=== PATIENT | male | born 1965 | race American Indian/Alaskan Native ===

== ENCOUNTER 2017-05-30 15:04 | Emergency (ER) | payer MEDICARE ==
[2017-05-30] MEDS ORDERED: DUONEB *Not for PRN Use IH ONE (17:34)
[2017-05-30 19:43] VITALS: BP 137/92
--- NOTE | 2017-05-30 19:44 | XRay Report ---
FINAL REPORT EXAM: XR CHEST ROUTINE 2V HISTORY: productive cough and wheezing TECHNIQUE: Two view chest PA and lateral PRIORS: None. FINDINGS: Cardiac and mediastinal contours are unremarkable. No focal pulmonary infiltrate is identified. No pleural fluid collection seen. Pulmonary vasculature is unremarkable. Nipple shadows noted. IMPRESSION: Negative two-view chest
== END 2017-05-30 19:51 | disposition home or self-care (01) ==
LOC: ED 15:04
DX: J01.90 Acute sinusitis, unspecified (principal); J45.909 Unspecified asthma, uncomplicated; I10 Essential (primary) hypertension
CPT/HCPCS: 71020

== ENCOUNTER 2017-09-03 17:06 | Emergency (ER) | payer OTHER ==
[2017-09-03] MEDS ORDERED: DUONEB *Not for PRN Use IH ONE (19:04)
[2017-09-03] MEDS ORDERED: CATAPRES PO ONE (19:04)
[2017-09-03] MEDS ORDERED: DELTASONE PO ONE (19:04)
[2017-09-03 20:21] VITALS: BP 140/92
--- NOTE | 2017-09-03 20:23 | Emergency Department Report ---
ED Asthma HPI - General Chief Complaint: Adult Asthma Stated Complaint: ASTHMA Time Seen by Provider: 09/03/17 19:03 Source: patient Mode of arrival: Ambulatory Limitations: No Limitations - History of Present Illness Initial Comments: pt is a 51 y/o aam with hx asthma pt states out of albuterol inhaler for past 2 weeks, pt states symptoms worse at night, denies sob no cp no dizziness no headache no n/v at this time. MD Complaint: wheezing Onset/Timin -: week(s) Asthma History: childhood onset Severity: moderate Context: other (out of albuterol ) Associated Symptoms: dry cough. denies: productive cough, fever, chest pain, hemoptysis, leg edema, syncope Treatments Prior to Arrival: other (none ) - Related Data Current Asthma Therapy: inhaled bronchodilator Home Medications Medication Instructions Recorded Confirmed Last Taken Albuterol Sulfate [Ventolin HFA] 2 puff IH Q4H PRN 07/26/13 12/01/14 12/01/14 traMADol [Ultram] 50 mg PO Q4HR PRN 12/01/14 12/01/14 12/01/14 Previous Rx's Medication Instructions Recorded Last Taken Type Albuterol Sulfate [Proventil HFA] 1 - 2 puff IH Q4H PRN #1 07/26/13 12/01/14 Rx ALBUTEROL Inhaler [ProAir HFA 2 puff IH QID PRN #1 inhalation 09/30/13 12/01/14 Rx Inhaler] Albuterol Sulfate [Ventolin HFA] 2 puff IH Q4H PRN #1 hfa.aer.ad 12/01/14 Unknown Rx HYDROcodone/ACETAMINOPHEN [[place] 1 each PO Q6H PRN #16 tablet 12/01/14 Unknown Rx 7.5-325 mg TAB] Loratadine [Claritin] 10 mg PO DAILY #30 tablet 12/01/14 Unknown Rx Sulfamethoxazole/Trimethoprim 1 each PO Q12H #14 tablet 12/01/14 Unknown Rx [Bactrim Ds] predniSONE [Deltasone] 20 mg PO TID #15 tab 12/01/14 Unknown Rx Albuterol Sulfate [Ventolin HFA] 2 puff IH Q4H PRN #1 hfa.aer.ad 02/15/15 Unknown Rx predniSONE [Deltasone] 20 mg PO TID #15 tab 02/15/15 Unknown Rx Albuterol Sulfate [Proair 90 mcg IH PRN #1 bottle 05/30/17 Unknown Rx Respiclick] Azithromycin [Zithromax Z-KALPANA] 250 mg PO DAILY #6 tablet 05/30/17 Unknown Rx predniSONE [Deltasone] 10 mg PO QDAY #3 tab 05/30/17 Unknown Rx ALBUTEROL Inhaler [ProAir HFA 2 puff IH QID PRN #1 inhalation 09/03/17 Unknown Rx Inhaler] predniSONE [Deltasone] 40 mg PO QDAY #10 tab 09/03/17 Unknown Rx Allergies Allergy/AdvReac Type Severity Reaction Status Date / Time pollen Allergy Shortness Uncoded 09/03/17 17:08 of Breath ED Review of Systems ROS: Stated complaint: ASTHMA Other details as noted in HPI Constitutional: denies: chills, fever Eyes: denies: eye pain, eye discharge, vision change ENT: denies: ear pain, throat pain Respiratory: cough, wheezing. denies: shortness of breath Cardiovascular: denies: chest pain, palpitations, edema Endocrine: no symptoms reported Gastrointestinal: denies: abdominal pain, nausea, diarrhea Genitourinary: denies: urgency, dysuria Musculoskeletal: denies: back pain, joint swelling, arthralgia Skin: denies: rash, lesions Neurological: denies: headache, weakness, paresthesias Psychiatric: denies: anxiety, depression Hematological/Lymphatic: denies: easy bleeding, easy bruising ED Past Medical Hx - Past Medical History Hx Hypertension: Yes Hx Asthma: Yes - Surgical History Additional Surgical History: back surg, knee surg - Social History Smoking Status: Never Smoker Substance Use Type: Alcohol - Medications Home Medications: Home Medications Medication Instructions Recorded Confirmed Last Taken Type Albuterol Sulfate [Proventil HFA] 1 - 2 puff IH Q4H PRN #1 07/26/13 12/01/1409/05 Rx Albuterol Sulfate [Ventolin HFA] 2 puff IH Q4H PRN 07/26/13 12/01/14 12/01/14 History ALBUTEROL Inhaler [ProAir HFA 2 puff IH QID PRN #1 inhalation 09/30/13 12/01/14 12/01/14 Rx Inhaler] Albuterol Sulfate [Ventolin HFA] 2 puff IH Q4H PRN #1 hfa.aer.ad 12/01/14 Unknown Rx HYDROcodone/ACETAMINOPHEN [[place] 1 each PO Q6H PRN #16 tablet 12/01/14 Unknown Rx 7.5-325 mg TAB] Loratadine [Claritin] 10 mg PO DAILY #30 tablet 12/01/14 Unknown Rx Sulfamethoxazole/Trimethoprim 1 each PO Q12H #14 tablet 12/01/14 Unknown Rx [Bactrim Ds] predniSONE [Deltasone] 20 mg PO TID #15 tab 12/01/14 Unknown Rx traMADol [Ultram] 50 mg PO Q4HR PRN 12/01/14 12/01/14 12/01/14 History Albuterol Sulfate [Ventolin HFA] 2 puff IH Q4H PRN #1 hfa.aer.ad 02/15/15 Unknown Rx predniSONE [Deltasone] 20 mg PO TID #15 tab 02/15/15 Unknown Rx Albuterol Sulfate [Proair 90 mcg IH PRN #1 bottle 05/30/17 Unknown Rx Respiclick] Azithromycin [Zithromax Z-KALPANA] 250 mg PO DAILY #6 tablet 05/30/17 Unknown Rx predniSONE [Deltasone] 10 mg PO QDAY #3 tab 05/30/17 Unknown Rx ALBUTEROL Inhaler [ProAir HFA 2 puff IH QID PRN #1 inhalation 09/03/17 Unknown Rx Inhaler] predniSONE [Deltasone] 40 mg PO QDAY #10 tab 09/03/17 Unknown Rx ED Physical Exam - General Limitations: No Limitations General appearance: alert, in no apparent distress - Head Head exam: Present: atraumatic, normocephalic - Eye Eye exam: Present: normal appearance - ENT ENT exam: Present: mucous membranes moist - Neck Neck exam: Present: normal inspection, full ROM. Absent: tenderness, meningismus, lymphadenopathy, thyromegaly - Respiratory Respiratory exam: Present: normal lung sounds bilaterally. Absent: wheezes, rales, rhonchi, stridor, prolonged expiratory - Cardiovascular Cardiovascular Exam: Present: regular rate, normal rhythm, normal heart sounds. Absent: systolic murmur, diastolic murmur, rubs, gallop - GI/Abdominal GI/Abdominal exam: Present: soft, normal bowel sounds - Rectal Rectal exam: Present: deferred - exam: Present: normal inspection - Extremities Exam Extremities exam: Present: normal inspection - Back Exam Back exam: Present: normal inspection - Neurological Exam Neurological exam: Present: alert, oriented X3, CN II-XII intact, normal gait, reflexes normal. Absent: motor sensory deficit - Psychiatric Psychiatric exam: Present: normal affect, normal mood - Skin Skin exam: Present: warm, dry, intact, normal color. Absent: rash ED Course Vital Signs 09/03/17 17:08 Temperature 98.1 F Pulse Rate 87 Respiratory 18 Rate Blood Pressure 197/111 O2 Sat by Pulse 97 Oximetry ED Medical Decision Making - Medical Decision Making pt is a 51 y/o aam with hx of asthma ran out of albuterol inhaler, present for cough with noc wheezing for last week symptoms have improved with neb tx given in ed, lung sounds now clear, no prolonged exp phase no accessory muscle use, pt ambulated from room to main ed and back to room without increased sob, plan. refill albuterol prednisone, follow up with pcp pt verbalized agreement and understanding of discharge plan. not htn episode there is no headache no dizziness no sob no cp pt is a/o x 3 ambulatory gait steady with nad , will folllow up pcp in 2=3 days Critical care attestation.: If time is entered above; I have spent that time in minutes in the direct care of this critically ill patient, excluding procedure time. ED Disposition Clinical Impression: Asthma Qualifiers: Asthma severity: moderate Asthma persistence: persistent Asthma complication type: uncomplicated Qualified Code(s): J45.40 - Moderate persistent asthma, uncomplicated Disposition: DC- TO HOME OR SELFCARE Is pt being admited?: No Does the pt Need Aspirin: No Condition: Good Instructions: Asthma (ED) Prescriptions: ALBUTEROL Inhaler [ProAir HFA Inhaler] 2 puff IH QID PRN #1 inhalation PRN Reason: Shortness Of Breath predniSONE [Deltasone] 40 mg PO QDAY #10 tab Referrals: MANJIT WHITE MD [Primary Care Provider] - 3-5 Days
== END 2017-09-03 20:37 | disposition home or self-care (01) ==
LOC: ED 17:06
DX: J45.909 Unspecified asthma, uncomplicated (principal); I10 Essential (primary) hypertension; Z88.8 Allergy status to other drugs, medicaments and biological substances
CPT/HCPCS: 94640; 99283; J7512

== ENCOUNTER 2017-09-11 14:56 | Outpatient (CLI) | payer OTHER ==
--- NOTE | 2017-09-11 21:12 | XRay Report ---
FINAL REPORT PROCEDURE: XR CHEST ROUTINE 2V TECHNIQUE: PA and lateral chest radiographs were obtained. CPT 48216 HISTORY: MILD INTERMITTENT ASTHMA WITHOUT COMPLICATION COMPARISON: No prior studies are available for comparison. FINDINGS: Heart: Normal. Mediastinum/Vessels: Normal. Lungs/Pleural space: Lungs are hyperinflated. There are no confluent infiltrates or mass lesions. Pleural spaces are clear.. Bony thorax: No acute osseous abnormality. Other: IMPRESSION: COPD. No acute pulmonary process..
--- NOTE | 2017-09-11 21:15 | XRay Report ---
FINAL REPORT PROCEDURE: XR KNEE 1-2V LT TECHNIQUE: LEFT knee radiographs, AP, lateral and sunrise views. CPT 89809 HISTORY: PAIN IN LEFT KNEE COMPARISON: No prior studies are available for comparison. FINDINGS: Fracture (s) and/or Dislocation(s): A small irregular density is noted central joint space measuring about 4 millimeters. Alignment: Normal . Joint space(s): Normal . Soft tissues: Normal . Bone mineralization: Normal . Foreign bodies: None . IMPRESSION: A small ossific density is noted in the central joint space on the frontal view only. This may represent a loose body in the appropriate clinical setting. MRI is recommended for further evaluation..
== END 2017-09-11 14:57 | disposition home or self-care (01) ==
LOC: XRAY 14:56
PROVIDERS: ATTEND Internal Medicine
DX: Z02.71 Encounter for disability determination (principal); J44.9 Chronic obstructive pulmonary disease, unspecified; J45.20 Mild intermittent asthma, uncomplicated; M25.562 Pain in left knee; I10 Essential (primary) hypertension
CPT/HCPCS: 71020

== ENCOUNTER 2017-10-20 17:52 | Emergency (ER) | payer MEDICAID ==
[2017-10-21] MEDS ORDERED: MOTRIN PO ONE (01:04)
[2017-10-21] MEDS ORDERED: TESSALON PERLES PO ONE (01:04)
[2017-10-21] MEDS ORDERED: DUONEB *Not for PRN Use IH ONE (01:09)
--- NOTE | 2017-10-21 01:14 | Emergency Department Report ---
- General Chief Complaint: Upper Respiratory Infection Stated Complaint: ADULT ASTHMA Time Seen by Provider: 10/21/17 01:03 Source: patient Mode of arrival: Ambulatory Limitations: No Limitations - History of Present Illness Initial Comments: This is a 51-year-old male nontoxic, well nourished in appearance, no acute signs of distress presents to the ED with c/o of productive cough, body aches, rhinorrhea, and nasal congestion x 2 days. Patient also stated has wheezing started 2 days ago. Patient stated has history of asthma. Patient describes productive cough as yellow mucus production. Patient stated has close contact with flu person. Patient denies any recent travels, long car rides, or recent hospital stays. Patient denies calf pain or calf tenderness. Patient denies drooling or hoarseness. Denies any hemoptysis. Patient denies chest pain, shortness of breath, fever, chills, nausea, vomiting, headache, stiff neck, numbness, tingling. Patient denies any drug allergies. PMH includes asthma and HTN. MD Complaint: cough, sore throat, rhinorrhea, nasal congestion, other (wheezing) -: days(s) (2) Severity: mild Severity scale (0 -10): 8 Quality: aching Consistency: constant Improves With: nothing Worsens With: nothing Context: sick contacts Associated Symptoms: rhinorrhea, nasal congestion, sore throat, cough. denies: fever, chills, myalgias, diaphoresis, headache, stiff neck, chest pain, shortness of breath, abdominal pain, nausea, vomiting, diarrhea, dysuria, rash, confusion, right sweats, weight loss, epistaxis, hoarseness, ear pain Treatments Prior to Arrival: none - Related Data Home Medications Medication Instructions Recorded Confirmed Last Taken Albuterol Sulfate [Ventolin HFA] 2 puff IH Q4H PRN 07/26/13 12/01/14 12/01/14 traMADol [Ultram] 50 mg PO Q4HR PRN 12/01/14 12/01/14 12/01/14 Previous Rx's Medication Instructions Recorded Last Taken Type Albuterol Sulfate [Proventil HFA] 1 - 2 puff IH Q4H PRN #1 07/26/13 12/01/14 Rx ALBUTEROL Inhaler [ProAir HFA 2 puff IH QID PRN #1 inhalation 09/30/13 12/01/14 Rx Inhaler] Albuterol Sulfate [Ventolin HFA] 2 puff IH Q4H PRN #1 hfa.aer.ad 12/01/14 Unknown Rx HYDROcodone/ACETAMINOPHEN [[place] 1 each PO Q6H PRN #16 tablet 12/01/14 Unknown Rx 7.5-325 mg TAB] Loratadine [Claritin] 10 mg PO DAILY #30 tablet 12/01/14 Unknown Rx Sulfamethoxazole/Trimethoprim 1 each PO Q12H #14 tablet 12/01/14 Unknown Rx [Bactrim Ds] predniSONE [Deltasone] 20 mg PO TID #15 tab 12/01/14 Unknown Rx Albuterol Sulfate [Ventolin HFA] 2 puff IH Q4H PRN #1 hfa.aer.ad 02/15/15 Unknown Rx predniSONE [Deltasone] 20 mg PO TID #15 tab 02/15/15 Unknown Rx Albuterol Sulfate [Proair 90 mcg IH PRN #1 bottle 05/30/17 Unknown Rx Respiclick] Azithromycin [Zithromax Z-KALPANA] 250 mg PO DAILY #6 tablet 05/30/17 Unknown Rx predniSONE [Deltasone] 10 mg PO QDAY #3 tab 05/30/17 Unknown Rx ALBUTEROL Inhaler [ProAir HFA 2 puff IH QID PRN #1 inhalation 09/03/17 Unknown Rx Inhaler] predniSONE [Deltasone] 40 mg PO QDAY #10 tab 09/03/17 Unknown Rx ALBUTEROL Inhaler [ProAir HFA 2 puff IH QID PRN #1 inhalation 10/21/17 Unknown Rx Inhaler] Albuterol Sulfate [Proventil Hfa] 6.7 gm IH DAILY #1 hfa.aer.ad 10/21/17 Unknown Rx Azithromycin [Zithromax Z-KALPANA] 250 mg PO DAILY #6 tablet 10/21/17 Unknown Rx Benzonatate [Tessalon Perle] 100 mg PO Q6H PRN #20 capsule 10/21/17 Unknown Rx Oseltamivir [Tamiflu] 75 mg PO BID #14 cap 10/21/17 Unknown Rx predniSONE [Deltasone] 40 mg PO QDAY #5 tab 10/21/17 Unknown Rx Allergies Allergy/AdvReac Type Severity Reaction Status Date / Time pollen Allergy Shortness Uncoded 09/03/17 17:08 of Breath ED Review of Systems ROS: Stated complaint: ADULT ASTHMA Other details as noted in HPI Constitutional: denies: chills, fever Eyes: denies: eye pain, eye discharge, vision change ENT: denies: ear pain, throat pain Respiratory: cough, wheezing. denies: shortness of breath Cardiovascular: denies: chest pain, palpitations Endocrine: no symptoms reported Gastrointestinal: denies: abdominal pain, nausea, diarrhea Genitourinary: denies: urgency, dysuria Musculoskeletal: denies: back pain, joint swelling, arthralgia Skin: denies: rash, lesions Neurological: denies: headache, weakness, paresthesias Psychiatric: denies: anxiety, depression Hematological/Lymphatic: denies: easy bleeding, easy bruising ED Past Medical Hx - Past Medical History Previous Medical History?: Yes Hx Hypertension: Yes (no meds) Hx Asthma: Yes - Surgical History Past Surgical History?: Yes Additional Surgical History: back surg, left knee surg - Social History Smoking Status: Former Smoker Substance Use Type: Alcohol, Non Opiate Pain, Prescribed - Medications Home Medications: Home Medications Medication Instructions Recorded Confirmed Last Taken Type Albuterol Sulfate [Proventil HFA] 1 - 2 puff IH Q4H PRN #1 07/26/13 12/01/1409/05 Rx Albuterol Sulfate [Ventolin HFA] 2 puff IH Q4H PRN 07/26/13 12/01/14 12/01/14 History ALBUTEROL Inhaler [ProAir HFA 2 puff IH QID PRN #1 inhalation 09/30/13 12/01/14 12/01/14 Rx Inhaler] Albuterol Sulfate [Ventolin HFA] 2 puff IH Q4H PRN #1 hfa.aer.ad 12/01/14 Unknown Rx HYDROcodone/ACETAMINOPHEN [[place] 1 each PO Q6H PRN #16 tablet 12/01/14 Unknown Rx 7.5-325 mg TAB] Loratadine [Claritin] 10 mg PO DAILY #30 tablet 12/01/14 Unknown Rx Sulfamethoxazole/Trimethoprim 1 each PO Q12H #14 tablet 12/01/14 Unknown Rx [Bactrim Ds] predniSONE [Deltasone] 20 mg PO TID #15 tab 12/01/14 Unknown Rx traMADol [Ultram] 50 mg PO Q4HR PRN 12/01/14 12/01/14 12/01/14 History Albuterol Sulfate [Ventolin HFA] 2 puff IH Q4H PRN #1 hfa.aer.ad 02/15/15 Unknown Rx predniSONE [Deltasone] 20 mg PO TID #15 tab 02/15/15 Unknown Rx Albuterol Sulfate [Proair 90 mcg IH PRN #1 bottle 05/30/17 Unknown Rx Respiclick] Azithromycin [Zithromax Z-KALPANA] 250 mg PO DAILY #6 tablet 05/30/17 Unknown Rx predniSONE [Deltasone] 10 mg PO QDAY #3 tab 05/30/17 Unknown Rx ALBUTEROL Inhaler [ProAir HFA 2 puff IH QID PRN #1 inhalation 09/03/17 Unknown Rx Inhaler] predniSONE [Deltasone] 40 mg PO QDAY #10 tab 09/03/17 Unknown Rx ALBUTEROL Inhaler [ProAir HFA 2 puff IH QID PRN #1 inhalation 10/21/17 Unknown Rx Inhaler] Albuterol Sulfate [Proventil Hfa] 6.7 gm IH DAILY #1 hfa.aer.ad 10/21/17 Unknown Rx Azithromycin [Zithromax Z-KALPANA] 250 mg PO DAILY #6 tablet 10/21/17 Unknown Rx Benzonatate [Tessalon Perle] 100 mg PO Q6H PRN #20 capsule 10/21/17 Unknown Rx Oseltamivir [Tamiflu] 75 mg PO BID #14 cap 10/21/17 Unknown Rx predniSONE [Deltasone] 40 mg PO QDAY #5 tab 10/21/17 Unknown Rx ED Physical Exam - General Limitations: No Limitations General appearance: alert, in no apparent distress - Head Head exam: Present: atraumatic, normocephalic - Eye Eye exam: Present: normal appearance, PERRL, EOMI Pupils: Present: normal accommodation - ENT ENT exam: Present: mucous membranes moist, TM's normal bilaterally, normal external ear exam - Expanded ENT Exam Expanded Ear exam: Present: normal external inspection Mouth exam: Present: normal external inspection, tongue normal. Absent: drooling, trismus, muffled voice, tongue elevation, laceration Teeth exam: Present: normal inspection Throat exam: Positive: tonsillar erythema, other (Uvula midline. No abscess or swelling noted. ). Negative: tonsillomegaly, tonsillar exudate, R peritonsillar mass, L peritonsillar mass - Neck Neck exam: Present: normal inspection, full ROM. Absent: tenderness, meningismus, lymphadenopathy, thyromegaly - Respiratory Respiratory exam: Present: normal lung sounds bilaterally, wheezes (bilateral upper and lower lobes ). Absent: respiratory distress, rales, rhonchi, stridor , chest wall tenderness, accessory muscle use, decreased breath sounds, prolonged expiratory - Cardiovascular Cardiovascular Exam: Present: regular rate, normal rhythm, normal heart sounds. Absent: irregular rhythm, systolic murmur, diastolic murmur, rubs, gallop - GI/Abdominal GI/Abdominal exam: Present: soft, normal bowel sounds. Absent: distended, tenderness, guarding, rebound, rigid, diminished bowel sounds - Rectal Rectal exam: Present: deferred - Extremities Exam Extremities exam: Present: normal inspection, full ROM, normal capillary refill. Absent: tenderness, pedal edema, joint swelling, calf tenderness - Back Exam Back exam: Present: normal inspection, full ROM. Absent: tenderness, CVA tenderness (R), CVA tenderness (L), muscle spasm, paraspinal tenderness, vertebral tenderness, rash noted - Neurological Exam Neurological exam: Present: alert, oriented X3, CN II-XII intact, normal gait, reflexes normal - Psychiatric Psychiatric exam: Present: normal affect, normal mood - Skin Skin exam: Present: warm, dry, intact, normal color. Absent: rash ED Course Vital Signs 10/20/17 10/21/17 10/21/17 18:37 01:18 01:27 Temperature 99.3 F Pulse Rate 102 H Pulse Rate [ 77 89 Anterior Bilateral Throughout] Respiratory 20 Rate Respiratory 18 18 Rate [Anterior Bilateral Throughout] Blood Pressure 150/100 O2 Sat by Pulse 94 Oximetry - Reevaluation(s) Reevaluation #1: 10/21/17 01:14 Patient is speaking in full sentences with no signs of distress noted. Reevaluation #2: 10/21/17 04:23 Patient request for proventil refill. ED Medical Decision Making - Lab Data Result diagrams: 10/21/17 02:14 10/21/17 02:14 - Medical Decision Making This is a 51-year-old male that presents with upper resp infection and asthma exacerbation. Patient is stable and was examined by me. Chest xray has been obtained and dictated by radiologist with abnormal nodular density 16.6 mm. Patient notified of x-ray results with no question or by the patient. Dr. Stark was consulted and agrees to the plan of care in the ED. CT chest with contrast has been obtained but patient refused as he stated he has to leave and take care financial business. I instructed and then directed to the patient that this is very serious and could be life threatening and need for further evaluation the patient stated he has to leave and will return. Patient signed AMA form. Vital signs stable prior to leaving. Patient is afebrile. Normal heart rate. Patient received DuoNeb and Solu-Medrol which symptoms of wheezing has subsided and patient states he feels much better. I'll treat patient empirically with Tamiflu and azith due to symptoms worsening and symptoms influenza at discharge. Patient was orally rehydrated in the ER and patient tolerated well with no signs of nausea or vomiting. Patient was instructed Follow-up with a primary care doctor in 3-5 days or if symptoms worsen and continue return to emergency room as soon as possible. At time time of discharge, the patient does not seem toxic or ill in appearance. No acute signs of distress noted. Patient agrees to discharge treatment plan of care. No further questions noted by the patient. This chart is dictated with using [employer] Dictation Program Critical care attestation.: If time is entered above; I have spent that time in minutes in the direct care of this critically ill patient, excluding procedure time. ED Disposition Clinical Impression: Upper respiratory infection Qualifiers: URI type: unspecified URI Qualified Code(s): J06.9 - Acute upper respiratory infection, unspecified Asthma exacerbation Qualifiers: Asthma severity: mild Asthma persistence: intermittent Qualified Code(s): J45.21 - Mild intermittent asthma with (acute) exacerbation Disposition: DC-07 LEFT AGAINST MED ADVICE Is pt being admited?: No Does the pt Need Aspirin: No Condition: Stable Instructions: Benzonatate (By mouth), Prednisone (By mouth), Oseltamivir (By mouth), Asthma (ED), Upper Respiratory Infection (ED) Additional Instructions: Follow-up with a primary care doctor in 3-5 days or if symptoms worsen and continue return to emergency room as soon as possible. Increase rest, hydration, and take Motrin fever episodes as prescribed. Keep a daily diary of blood pressure and present it to your primary care doctor. Prescriptions: ALBUTEROL Inhaler [ProAir HFA Inhaler] 2 puff IH QID PRN #1 inhalation PRN Reason: Shortness Of Breath Albuterol Sulfate [Proventil Hfa] 6.7 gm IH DAILY #1 hfa.aer.ad Azithromycin [Zithromax Z-KALPANA] 250 mg PO DAILY #6 tablet Benzonatate [Tessalon Perle] 100 mg PO Q6H PRN #20 capsule PRN Reason: Cough Oseltamivir [Tamiflu] 75 mg PO BID #14 cap predniSONE [Deltasone] 40 mg PO QDAY #5 tab Referrals: PRIMARY CARE, [Primary Care Provider] - 3-5 Days ALYSA ESTRADA MD [Staff Physician] - 3-5 Days [facility] [Outside] - 3-5 Days [facility] [Outside] - 3-5 Days Forms: Work/School Release Form(ED), AMA Form
--- NOTE | 2017-10-21 01:53 | XRay Report ---
FINAL REPORT EXAM: XR CHEST ROUTINE 2V HISTORY: cough TECHNIQUE: PA and lateral views of the chest were submitted and compared to the study of 09/11/2017. FINDINGS: Heart size and mediastinum appear normal. The lungs are not congested. There is a new 16.6 mm nodular density in the right lung base. With this neoplastic or inflammatory is uncertain. Pleural fluid is not seen. The skeletal structures appear well maintained IMPRESSION: New 16.6 mm nodular density in the right lung base. Whether this is neoplastic or inflammatory is uncertain. No acute infiltrates or congestion.
[2017-10-21 02:38] LABS: Basophils % (Auto) 0.5 % (0.0-1.8); Eosinophils # (Auto) 0.1 K/mm3 (0.0-0.4); Eosinophils % (Auto) 2.6 % (0.0-4.3); Hematocrit 40.6 % (35.5-45.6); Hemoglobin 13.5 gm/dl (11.8-15.2); Lymphocytes # (Auto) 0.9 K/mm3 (1.2-5.4); Lymphocytes % (Auto) 18.1 % (13.4-35.0); Mean Corpuscular HGB Conc 33 % (32-34); Mean Corpuscular Hemoglobin 29 pg (28-32); Mean Corpuscular Volume 88 fl (84-94); Monocytes # (Auto) 0.7 K/mm3 (0.0-0.8); Monocytes % (Auto) 13.9 % (0.0-7.3); Platelet Count 211 K/mm3 (140-440); Red Blood Count 4.63 M/mm3 (3.65-5.03); Red Cell Distribution Width 13.9 % (13.2-15.2)
[2017-10-21 02:43] LABS: BUN/Creatinine Ratio 24; Blood Urea Nitrogen 19 mg/dL (9-20); Hemolysis Index 4
[2017-10-21 05:48] VITALS: BP 146/92
== END 2017-10-21 04:45 | disposition left against medical advice (07) ==
LOC: ED 17:52
DX: J06.9 Acute upper respiratory infection, unspecified (principal); J45.21 Mild intermittent asthma with (acute) exacerbation; I10 Essential (primary) hypertension; J45.909 Unspecified asthma, uncomplicated; Z87.891 Personal history of nicotine dependence; Z88.8 Allergy status to other drugs, medicaments and biological substances
CPT/HCPCS: 36415; 71046; 80048; 85025; 94640; 96372; 99284; J2930

== ENCOUNTER 2018-05-09 14:42 | Emergency (ER) | payer MEDICAID ==
[2018-05-09 14:57] VITALS: BP 155/83
[2018-05-09 15:59] LABS: Alanine Aminotransferase 14 units/L (7-56); Albumin 4.4 g/dL (3.9-5); BUN/Creatinine Ratio 20; Blood Urea Nitrogen 18 mg/dL (9-20); Calcium 9.9 mg/dL (8.4-10.2); Hemolysis Index 0
[2018-05-09 16:04] LABS: Basophils % (Auto) 0.3 % (0.0-1.8); Eosinophils # (Auto) 0.1 K/mm3 (0.0-0.4); Eosinophils % (Auto) 1.6 % (0.0-4.3); Hematocrit 43.9 % (35.5-45.6); Hemoglobin 14.7 gm/dl (11.8-15.2); Lymphocytes # (Auto) 1.8 K/mm3 (1.2-5.4); Lymphocytes % (Auto) 25.2 % (13.4-35.0); Mean Corpuscular HGB Conc 33 % (32-34); Mean Corpuscular Hemoglobin 29 pg (28-32); Mean Corpuscular Volume 88 fl (84-94); Monocytes # (Auto) 0.5 K/mm3 (0.0-0.8); Monocytes % (Auto) 6.6 % (0.0-7.3); Platelet Count 266 K/mm3 (140-440); Red Blood Count 5.02 M/mm3 (3.65-5.03); Red Cell Distribution Width 14.9 % (13.2-15.2)
--- NOTE | 2018-05-09 17:34 | Emergency Department Report ---
HPI - General Chief Complaint: Abdominal Pain Time Seen by Provider: 05/09/18 17:30 - HPI HPI: 52-year-old male presents to the emergency department with complaint of 3-4 days of abdominal pain. At first it started off more as gas pains in the upper abdomen and even in the chest more recently it has localized more to the right lower quadrant. He has a history of gastritis and acid reflux. At first he was having some constipation issues and took some milk of magnesia and says that he has been having multiple loose bowel movements since that time. He has a few days of subjective fever. The right lower quadrant abdominal pain increases with pressing of his abdomen or with exertion. He also has a past medical history of asthma, hypertension, hypercholesterolemia. No recent travel or sick contacts at home. Patient also says he has some pain towards the suprapubic abdomen as well as some discomfort while urinating. He denies any discharge or lesions. No history of STDs. ED Past Medical Hx - Past Medical History Previous Medical History?: Yes Hx Hypertension: Yes (no meds) Hx Asthma: Yes Additional medical history: GERD, Gastritis, High cholesterol - Surgical History Past Surgical History?: Yes Additional Surgical History: back surg, left knee surg - Social History Smoking Status: Current Every Day Smoker Substance Use Type: Alcohol, Marijuana, Prescribed - Medications Home Medications: Home Medications Medication Instructions Recorded Confirmed Last Taken Type Albuterol Sulfate [Proventil HFA] 1 - 2 puff IH Q4H PRN #1 07/26/13 12/01/1409/05 Rx Albuterol Sulfate [Ventolin HFA] 2 puff IH Q4H PRN 07/26/13 12/01/14 12/01/14 History ALBUTEROL Inhaler [ProAir HFA 2 puff IH QID PRN #1 inhalation 09/30/13 12/01/14 12/01/14 Rx Inhaler] Albuterol Sulfate [Ventolin HFA] 2 puff IH Q4H PRN #1 hfa.aer.ad 12/01/14 Unknown Rx HYDROcodone/ACETAMINOPHEN [[place] 1 each PO Q6H PRN #16 tablet 12/01/14 Unknown Rx 7.5-325 mg TAB] Loratadine [Claritin] 10 mg PO DAILY #30 tablet 12/01/14 Unknown Rx Sulfamethoxazole/Trimethoprim 1 each PO Q12H #14 tablet 12/01/14 Unknown Rx [Bactrim Ds] predniSONE [Deltasone] 20 mg PO TID #15 tab 12/01/14 Unknown Rx traMADol [Ultram] 50 mg PO Q4HR PRN 12/01/14 12/01/14 12/01/14 History Albuterol Sulfate [Ventolin HFA] 2 puff IH Q4H PRN #1 hfa.aer.ad 02/15/15 Unknown Rx predniSONE [Deltasone] 20 mg PO TID #15 tab 02/15/15 Unknown Rx Albuterol Sulfate [Proair 90 mcg IH PRN #1 bottle 05/30/17 Unknown Rx Respiclick] Azithromycin [Zithromax Z-KALPANA] 250 mg PO DAILY #6 tablet 05/30/17 Unknown Rx predniSONE [Deltasone] 10 mg PO QDAY #3 tab 05/30/17 Unknown Rx ALBUTEROL Inhaler [ProAir HFA 2 puff IH QID PRN #1 inhalation 09/03/17 Unknown Rx Inhaler] predniSONE [Deltasone] 40 mg PO QDAY #10 tab 09/03/17 Unknown Rx ALBUTEROL Inhaler [ProAir HFA 2 puff IH QID PRN #1 inhalation 10/21/17 Unknown Rx Inhaler] Albuterol Sulfate [Proventil Hfa] 6.7 gm IH DAILY #1 hfa.aer.ad 10/21/17 Unknown Rx Azithromycin [Zithromax Z-KALPANA] 250 mg PO DAILY #6 tablet 10/21/17 Unknown Rx Benzonatate [Tessalon Perle] 100 mg PO Q6H PRN #20 capsule 10/21/17 Unknown Rx Oseltamivir [Tamiflu] 75 mg PO BID #14 cap 10/21/17 Unknown Rx predniSONE [Deltasone] 40 mg PO QDAY #5 tab 10/21/17 Unknown Rx HYDROcodone/APAP 5-325 [[place] 1 each PO Q6HR PRN #10 tablet 05/09/18 Unknown Rx 5/325] levoFLOXacin [Levaquin] 750 mg PO QDAY #7 tablet 05/09/18 Unknown Rx metroNIDAZOLE [Flagyl] 500 mg PO Q12HR #14 tab 05/09/18 Unknown Rx ED Review of Systems ROS: Stated complaint: STOMACH PAIN/FEVER Other details as noted in HPI Comment: All other systems reviewed and negative Constitutional: fever (subjective). denies: chills Eyes: denies: eye pain, eye discharge, vision change ENT: denies: ear pain, throat pain Respiratory: denies: cough, shortness of breath, wheezing Cardiovascular: denies: chest pain, palpitations Gastrointestinal: abdominal pain, constipation Genitourinary: denies: urgency, dysuria Musculoskeletal: denies: back pain, joint swelling, arthralgia Skin: denies: rash, lesions Neurological: denies: headache, weakness, paresthesias Physical Exam - Physical Exam Vital Signs: Vital Signs 05/09/18 14:53 Temperature 98.6 F Pulse Rate 95 H Respiratory 20 Rate Blood Pressure 155/83 O2 Sat by Pulse 95 Oximetry Physical Exam: GENERAL: The patient is well-developed well-nourished. HENT: Normocephalic. Atraumatic. Patient has moist mucous membranes. EYES: Extraocular motions are intact. Pupils equal reactive to light bilaterally. NECK: Supple. Trachea is midline. CHEST/LUNGS: Clear to auscultation. There is no respiratory distress noted. HEART/CARDIOVASCULAR: Regular. There is no tachycardia. There is no murmur. ABDOMEN: Abdomen is soft. There is reproducible right lower quadrant tenderness to palpation. No guarding. Patient has normal bowel sounds. There is no abdominal distention. SKIN: Skin is warm and dry. NEURO: The patient is awake, alert, and oriented. The patient is cooperative. The patient has no focal neurologic deficits. The patient has normal speech and gait. MUSCULOSKELETAL: There is no tenderness or deformity. There is no limitation range of motion. There is no evidence of acute injury. ED Course Vital Signs 05/09/18 14:53 Temperature 98.6 F Pulse Rate 95 H Respiratory 20 Rate Blood Pressure 155/83 O2 Sat by Pulse 95 Oximetry ED Medical Decision Making - Lab Data Result diagrams: 05/09/18 15:08 05/09/18 15:08 - Radiology Data Radiology results: report reviewed EXAM: CT ABDOMEN PELVIS W CON HISTORY: RLQ abd pain TECHNIQUE: Axial images were performed from the lung bases to the pubic symphysis. Multiplanar reformats are performed on the acquisition scanner. Total exam DLP 2266.26 mGy-cm Comparison: None FINDINGS: Mild right middle lobe atelectasis and posterior basal dependent atelectasis and scar. Mild diffusely hypodense liver compatible with fatty infiltration. Otherwise, normal enhancement and appearance of the liver, spleen, pancreas, gallbladder, bilateral adrenal glands and bilateral kidneys. Stomach is decompressed. Aorta and mesenteric vessels are unremarkable. In the right lower quadrant, there is inflammatory process with soft tissue induration of the right lower quadrant mesenteric fat adjacent to the redundant sigmoid colon. The appendix is normal and lateral to this location. No free air or free fluid. Mild sigmoid diverticulosis. Thick-walled urinary bladder wall. Enlarged prostate. Mild diastasis rectus of the anterior abdominal wall musculature. Previous transpedicular fusion L4 to S1. Partial bony fusion of the vertebral bodies and facets. Right L5 screw is surgically absent. Delayed phase images demonstrate normal excretion of contrast from the kidneys. IMPRESSION: Acute uncomplicated sigmoid diverticulitis which is localized to the right lower quadrant due to the elongated sigmoid mesocolon. Small sigmoid mesenteric arcade lymph nodes. No abscess. Normal appendix is adjacent. Previous transpedicular fusion. Mild right middle lobe consolidation. Transcribed By: MP Dictated By: LEONIDAS WONG Electronically Authenticated By: LEONIDAS WONG Signed Date/Time: 05/09/18 9206 - Medical Decision Making Patient had some abdominal and or gas pains that were more generalized and became more localized to the right lower quadrant. Labs have been unremarkable. A CT scan of the abdomen pelvis with IV contrast was done that showed acute uncomplicated sigmoid diverticulitis without any signs of any abscess or perforation. For this reason the patient appears safe for discharge home but will be treated with both Levaquin and Flagyl. We discussed Flagyl and it's significant adverse effects when combined with alcohol of any quantity. He was also given some pain medication and understands the sedating nature of this medication as well and that it too cannot be mixed with alcohol. He says that he has follow-up with a primary care physician. He has been given a referral for gastroenterology. He was given some information regarding his diagnosis as well as some diets for diverticulosis/diverticulitis. He will return to the ER with any worsening of symptoms or any acute distress. - Differential Diagnosis appendicitis, diverticulitis, constipation, hernia Critical Care Time: No Critical care attestation.: If time is entered above; I have spent that time in minutes in the direct care of this critically ill patient, excluding procedure time. ED Disposition Clinical Impression: Diverticulitis large intestine Qualifiers: Diverticulitis bleeding: without bleeding Diverticulitis complication: without perforation or abscess Qualified Code(s): K57.32 - Diverticulitis of large intestine without perforation or abscess without bleeding Abdominal pain Qualifiers: Abdominal location: right lower quadrant Qualified Code(s): R10.31 - Right lower quadrant pain Disposition: TO HOME OR SELFCARE Is pt being admited?: No Condition: Stable Instructions: Diverticulitis (ED), Diverticulosis (ED), Diverticulitis Diet (ED ), Diverticulosis Diet (ED) Additional Instructions: Please follow-up with your primary care physician. I've given him a referral for a local coal screener, Dr. Sow, to follow up regarding your abdominal pain and diverticulosis/diverticulitis. Take the antibiotics as prescribed. Return to the emergency Department with any worsening of your symptoms or any acute distress. One of the 2 antibiotics prescribed, Flagyl/metronidazole, has a very significant reaction to any alcohol consumption of any quantity. Do not drink alcohol with this medication or you will develop nausea, vomiting and worsening abdominal pain. You have been prescribed a medication that is sedating and therefore should not be taken prior to driving, working, and responsible for children and in no way should be mixed with alcohol of any quantity. Prescriptions: HYDROcodone/APAP 5-325 [[place] 5/325] 1 each PO Q6HR PRN #10 tablet PRN Reason: Pain levoFLOXacin [Levaquin] 750 mg PO QDAY #7 tablet metroNIDAZOLE [Flagyl] 500 mg PO Q12HR #14 tab Referrals: PRIMARY MD JULIANA [Primary Care Provider] - 3-5 Days SPRING SOW MD [Staff Physician] - 3-5 Days Time of Disposition: 18:46
[2018-05-09 17:53] LABS: Bilirubin,Urine SM (Negative); Blood,Urine NEG (Negative); Color,Urine Amber (Yellow); Mucus,Urine 3+ /HPF
[2018-05-09 17:57] LABS: Ictotest,Urine Negative (Negative)
--- NOTE | 2018-05-09 18:34 | Cat Scan Report ---
FINAL REPORT EXAM: CT ABDOMEN PELVIS W CON HISTORY: RLQ abd pain TECHNIQUE: Axial images were performed from the lung bases to the pubic symphysis. Multiplanar reformats are performed on the acquisition scanner. Total exam DLP 2266.26 mGy-cm Comparison: None FINDINGS: Mild right middle lobe atelectasis and posterior basal dependent atelectasis and scar. Mild diffusely hypodense liver compatible with fatty infiltration. Otherwise, normal enhancement and appearance of the liver, spleen, pancreas, gallbladder, bilateral adrenal glands and bilateral kidneys. Stomach is decompressed. Aorta and mesenteric vessels are unremarkable. In the right lower quadrant, there is inflammatory process with soft tissue induration of the right lower quadrant mesenteric fat adjacent to the redundant sigmoid colon. The appendix is normal and lateral to this location. No free air or free fluid. Mild sigmoid diverticulosis. Thick-walled urinary bladder wall. Enlarged prostate. Mild diastasis rectus of the anterior abdominal wall musculature. Previous transpedicular fusion L4 to S1. Partial bony fusion of the vertebral bodies and facets. Right L5 screw is surgically absent. Delayed phase images demonstrate normal excretion of contrast from the kidneys. IMPRESSION: Acute uncomplicated sigmoid diverticulitis which is localized to the right lower quadrant due to the elongated sigmoid mesocolon. Small sigmoid mesenteric arcade lymph nodes. No abscess. Normal appendix is adjacent. Previous transpedicular fusion. Mild right middle lobe consolidation.
== END 2018-05-09 19:03 | disposition home or self-care (01) ==
LOC: ED 14:42
DX: K57.32 Diverticulitis of large intestine without perforation or abscess without bleeding (principal); I10 Essential (primary) hypertension; J45.909 Unspecified asthma, uncomplicated; F17.200 Nicotine dependence, unspecified, uncomplicated; F12.10 Cannabis abuse, uncomplicated
CPT/HCPCS: 36415; 74177; 80053; 81001; 85025; 99284; Q9967

== ENCOUNTER 2019-05-22 11:19 | Emergency (ER) | payer MEDICAID, OTHER ==
[2019-05-22 11:39] VITALS: BP 152/84
[2019-05-22] MEDS ORDERED: DUONEB *Not for PRN Use IH ONE ×2 (11:39→12:17)
[2019-05-22] MEDS ORDERED: DECADRON IM ONE (11:39)
--- NOTE | 2019-05-22 11:40 | Event Note ---
ED Screening Note Date of service: 05/22/19 Time: 11:36 ED Screening Note: This initial assessment/diagnostic orders/clinical plan/treatment(s) is/are subject to change based on patients health status, clinical progression and re- assessment by fellow clinical providers in the ED. Further treatment and workup at subsequent clinical providers discretion. Patient/guardian urged not to elope from the ED as their condition may be serious if not clinically assessed and managed. Initial orders include: 53 y o male presents to ED cc of asthma flare up states inhaler not working also ccof cold
[2019-05-22] MEDS ORDERED: DELTASONE PO ONE (11:48)
--- NOTE | 2019-05-22 12:07 | XRay Report ---
CHEST 2 VIEWS INDICATION / CLINICAL INFORMATION: cough/asthma. COMPARISON: 10/21/2017 FINDINGS: SUPPORT DEVICES: None. HEART / MEDIASTINUM: No significant abnormality. LUNGS / PLEURA: Right basilar nodule unchanged. No pneumothorax. ADDITIONAL FINDINGS: No significant additional findings. IMPRESSION: Nodule in the right lung base is unchanged in size or appearance from 10/21/2017. No acute disease or interval change from the prior study Signer Name: Jean Klein MD FACR Signed: 05/22/2019 12:03 PM Workstation Name: [id number]
--- NOTE | 2019-05-22 12:31 | Emergency Department Report ---
Minor Respiratory - HPI Chief Complaint: Upper Respiratory Infection Stated Complaint: ASTHMA/COLD SYM Time Seen by Provider: 05/22/19 11:35 Duration: 3 Days Severity: moderate Minor Respiratory: Yes Rhinorrhea, Yes Able to Tolerate Fluids, Yes Cough, Yes Sick Contacts, Yes Shortness of Breath, No Sore Throat, No Ear Pain, No Hemoptysis, No Chest Pain, No Fever Other History: This is a 53-year-old -[place] male who presents to the emergency room with cough, wheezing, shortness of breath for 2-3 days. Past medical history of asthma, hypertension, GERD, and hyperlipidemia. Patient states he has tried everything [id number] with increased use of inhaler with no improvement of symptoms. Patient states a coworker coughed on him a couple of days ago when he's been sick ever since. He denies chest pain, nausea, vomiting, fever, myalgia, coryza, or sore throat. ED Review of Systems ROS: Stated complaint: ASTHMA/COLD SYM Other details as noted in HPI Constitutional: chills. denies: fever ENT: congestion. denies: ear pain, throat pain Respiratory: cough, SOB with exertion, wheezing Cardiovascular: denies: chest pain, palpitations Gastrointestinal: denies: abdominal pain, nausea, diarrhea Skin: denies: rash, lesions Neurological: denies: headache, weakness, paresthesias Psychiatric: denies: anxiety, depression ED Past Medical Hx - Past Medical History Previous Medical History?: Yes Hx Hypertension: Yes (no meds) Hx Asthma: Yes Additional medical history: GERD, Gastritis, High cholesterol - Surgical History Additional Surgical History: back surg, left knee surg - Social History Smoking Status: Current Every Day Smoker Substance Use Type: None - Medications Home Medications: Home Medications Medication Instructions Recorded Confirmed Last Taken Type Albuterol Sulfate [Proventil HFA] 1 - 2 puff IH Q4H PRN #1 07/26/13 12/01/14 12/01/14 Rx Albuterol Sulfate [Ventolin HFA] 2 puff IH Q4H PRN 07/26/13 12/01/14 12/01/14 History ALBUTEROL Inhaler (OR & NICU) 2 puff IH QID PRN #1 inhalation 09/30/13 12/01/14 12/01/14 Rx [ProAir HFA Inhaler] Albuterol Sulfate [Ventolin HFA] 2 puff IH Q4H PRN #1 hfa.aer.ad 12/01/14 Unknown Rx HYDROcodone/ACETAMINOPHEN [[place] 1 each PO Q6H PRN #16 tablet 12/01/14 Unknown Rx 7.5-325 mg TAB] Loratadine [Claritin] 10 mg PO DAILY #30 tablet 12/01/14 Unknown Rx Sulfamethoxazole/Trimethoprim 1 each PO Q12H #14 tablet 12/01/14 Unknown Rx [Bactrim Ds] predniSONE [Deltasone] 20 mg PO TID #15 tab 12/01/14 Unknown Rx traMADol [Ultram] 50 mg PO Q4HR PRN 12/01/14 12/01/14 12/01/14 History Albuterol Sulfate [Ventolin HFA] 2 puff IH Q4H PRN #1 hfa.aer.ad 02/15/15 Unknown Rx predniSONE [Deltasone] 20 mg PO TID #15 tab 02/15/15 Unknown Rx Albuterol Sulfate [Proair 90 mcg IH PRN #1 bottle 05/30/17 Unknown Rx Respiclick] Azithromycin [Zithromax Z-KALPANA] 250 mg PO DAILY #6 tablet 05/30/17 Unknown Rx predniSONE [Deltasone] 10 mg PO QDAY #3 tab 05/30/17 Unknown Rx predniSONE [Deltasone] 40 mg PO QDAY #10 tab 09/03/17 Unknown Rx ALBUTEROL Inhaler (OR & NICU) 2 puff IH QID PRN #1 inhalation 10/21/17 Unknown Rx [ProAir HFA Inhaler] Albuterol Sulfate [Proventil Hfa] 6.7 gm IH DAILY #1 hfa.aer.ad 10/21/17 Unknown Rx Benzonatate [Tessalon Perle] 100 mg PO Q6H PRN #20 capsule 10/21/17 Unknown Rx Oseltamivir [Tamiflu] 75 mg PO BID #14 cap 10/21/17 Unknown Rx predniSONE [Deltasone] 40 mg PO QDAY #5 tab 10/21/17 Unknown Rx HYDROcodone/APAP 5-325 [[place] 1 each PO Q6HR PRN #10 tablet 05/09/18 Unknown Rx 5/325] levoFLOXacin [Levaquin] 750 mg PO QDAY #7 tablet 05/09/18 Unknown Rx metroNIDAZOLE [Flagyl] 500 mg PO Q12HR #14 tab 05/09/18 Unknown Rx ALBUTEROL Inhaler (OR & NICU) 2 puff IH QID PRN #1 inhalation 05/22/19 Unknown Rx [ProAir HFA Inhaler] Azithromycin [Zithromax Z-KALPANA] 250 mg PO DAILY #6 tablet 05/22/19 Unknown Rx methylPREDNISolone [Medrol 4MG 4 mg PO DAILY #1 tab.ds.pk 05/22/19 Unknown Rx DOSEPAK (21 tabs)] Minor Respiratory Exam - Exam General: Vital signs noted. No distress. Alert and acting appropriately. HEENT: Yes Moist Mucous Membranes, Yes Rhinorrhea (turbinates mildly congested with clear discharge), No Pharyngeal Erythema, No Pharyngeal Exudates, No Conjuctival Injection, No Frontal Tenderness, No Maxillary Tenderness Ear: Neither TM Bulge, Neither TM Erythema, Neither EAC Pain, Neither EAC Discharge Neck: Yes Supple, No Adenopathy Lungs: Yes Wheezes, No Good Air Exchange, No Ronchi, No Stridor, No Cough, No Labored Respirations, No Retractions, No Use of Accessory Muscles, No Other Abnormal Lung Sounds Heart: Yes Regular, No Murmur Abdomen: Yes Normal Bowel Sounds, No Tenderness, No Peritoneal Signs Skin: No Rash, No Edema Neurologic: Alert and oriented, no deficits. Musculoskeletal: Unremarkable. ED Course Vital Signs 05/22/19 05/22/19 11:35 12:20 Temperature 98.7 F Pulse Rate 104 H Pulse Rate [ 97 H Posterior Bilateral Throughout] Respiratory 18 Rate Respiratory 20 Rate [Posterior Bilateral Throughout] Blood Pressure 152/84 O2 Sat by Pulse 93 Oximetry ED Medical Decision Making - Radiology Data Radiology results: report reviewed CHEST 2 VIEWS INDICATION / CLINICAL INFORMATION: cough/asthma. COMPARISON: 10/21/2017 FINDINGS: SUPPORT DEVICES: None. HEART / MEDIASTINUM: No significant abnormality. LUNGS / PLEURA: Right basilar nodule unchanged. No pneumothorax. ADDITIONAL FINDINGS: No significant additional findings. IMPRESSION: Nodule in the right lung base is unchanged in size or appearance from 10/21/2017. No acute disease or interval change from the prior study - Medical Decision Making This patient was seen by this provider. History of Asthma and HTN. Vitals stable. Given duoneb treatment twice and prednisone 60 mg po once in ER. Wheezes resolved. Asthma exacerbation, Start albuterol, Z-Kalpana, and prednisone taper. Discharged home stable. Encouraged to current [id number] medication for for URI. No medication ordered. Return to work tomorrow. Critical care attestation.: If time is entered above; I have spent that time in minutes in the direct care o f this critically ill patient, excluding procedure time. ED Disposition Clinical Impression: Shortness of breath, Wheezing Asthma Qualifiers: Asthma severity: mild Asthma persistence: intermittent Asthma complication type: with acute exacerbation Qualified Code(s): J45.21 - Mild intermittent asthma with (acute) exacerbation Asthma exacerbation Qualifiers: Asthma severity: mild Asthma persistence: intermittent Qualified Code(s): J45.21 - Mild intermittent asthma with (acute) exacerbation Upper respiratory infection Qualifiers: URI type: acute nasopharyngitis (common cold) Qualified Code(s): J00 - Acute nasopharyngitis [common cold] Disposition: TO HOME OR SELFCARE Is pt being admited?: No Does the pt Need Aspirin: No Condition: Stable Instructions: Asthma (ED), Upper Respiratory Infection (ED) Additional Instructions: It is important to use inhaler or have active albuterol inhaler and avoiding asthma triggers. Complete full course of prednisone steroids as prescribed. Follow up with Primary Care Provider in 24-72 hours. Prescriptions: methylPREDNISolone [Medrol 4MG DOSEPAK (21 tabs)] 4 mg PO DAILY #1 tab.ds.pk ALBUTEROL Inhaler (OR & NICU) [ProAir HFA Inhaler] 2 puff IH QID PRN #1 inhalation PRN Reason: Shortness Of Breath Azithromycin [Zithromax Z-KALPANA] 250 mg PO DAILY #6 tablet Referrals: [facility] [Outside] - 3-5 Days [facility] [Provider Group] - 3-5 Days [facility] [Provider Group] - 3-5 Days Time of Disposition: 13:52
== END 2019-05-22 13:59 | disposition home or self-care (01) ==
LOC: ED 11:19
DX: J45.901 Unspecified asthma with (acute) exacerbation (principal); J06.9 Acute upper respiratory infection, unspecified; I10 Essential (primary) hypertension; K21.9 Gastro-esophageal reflux disease without esophagitis; F17.200 Nicotine dependence, unspecified, uncomplicated; E78.00 Pure hypercholesterolemia, unspecified; Z79.899 Other long term (current) drug therapy; Z98.890 Other specified postprocedural states; Z88.9 Allergy status to unspecified drugs, medicaments and biological substances
CPT/HCPCS: 71046; 94640; 99283; J7512; 94644; J1100